=== PATIENT | male | born 2000 | race Caucasian/White ===

== ENCOUNTER 2025-03-26 05:48 | Day surgery (SDC) | payer BC, SELFPAY ==
[2025-03-26] VITALS (7 sets, daily range): BP systolic 20–126; BP diastolic 48–65; BMI 19.2
[2025-03-26] MEDS: TYLENOL 1000 MG PO (06:33)
[2025-03-26] MEDS: NORMOSOL-R/PLASMALYTE-A 1000 IV (06:34)
--- NOTE | 2025-03-26 08:23 | W.IMMPOSTOP ---
Surgical Immed Post Op Note
-
Primary Surgeon: Obie
Assisting: Khushi BURT
Pre-op Diagnosis: Lipoma of buttock, bilateral
Post-op Diagnosis: Same
Procedure Performed: Excision of lipoma of buttock, bilateral
Anesthesia Type: MAC local
Specimen / Cultures: Lipoma left buttock and lipoma right buttock
Estimated Blood Loss: 5cc
Complications: None immediate
Operative Findings: Fibrous lipomatous soft tissue masses with superficial cystic component, left buttock 7cm x 3cm x 2cm; right buttock 6cm x 3cm x 2cm
--- NOTE | 2025-03-26 11:20 | OR.RPT ---
Operative Report
Operative Report
Primary Surgeon: Obie
Assisting: Khushi BURT
Pre-op Diagnosis: Lipoma of buttock, bilateral
Post-op Diagnosis: Same
Procedure Performed: Excision of lipoma of buttock, bilateral
Anesthesia Type: MAC local
Specimen / Cultures: Lipoma left buttock and lipoma right buttock
Estimated Blood Loss: 5cc
Complications: None immediate
Operative Findings: Fibrous lipomatous soft tissue masses with superficial cystic component, left buttock 7cm x 3cm x 2cm; right buttock 6cm x 3cm x 2cm
Date of Surgery: 03/26/25
Indications: This 25M developed soft tissue masses on bilateral buttocks. Excision under MC local was planned.
PROCEDURE: After informed consent was obtained, the patient was marked and then brought to the operative suite and placed supine on the operating table. The patient was sedated, prepped and draped in the usual sterile manner and an adequate local
anesthetic was administered using lidocaine.
Attention was turned to the left buttock mass. An incision was made over the mass and carried down to the subcutaneous fat with a #10 blade. The mass was palpated and grasped with an allis clamp and elevated. Surrounding attachments were taken with
metzenbaum gunnar and cautery. The mass was excised in toto and passed off the table as specimen. It did not have a clear border. It had a fibrous texture. The wound was then packed with a raytec and attention was turned to the right buttock mass
and the above process was repeated with similar findings. Care was taken to protect the skin.
The wounds were then irrigated with copious sterile saline, and hemostasis was obtained using Bovie electrocautery. The skin was approximated with 3-0 Vicryl deep dermal interrupted sutures and 4-0 monocryl suture in a subcuticular fashion. Topical
skin glue was then applied. All surgical counts were reported as correct.
The patient tolerated the procedure well and was taken to the PACU in stable condition.
The assistance of Khushi BURT was required due to the complexity of the procedure. During the procedure she assisted with retraction, resection, and closure of the wound.
== END 2025-03-26 10:00 | disposition home or self-care (01) ==
LOC: SDS 05:48
PROVIDERS: ATTENDING PHYSICIAN Surgery
DX: D17.1 Benign lipomatous neoplasm of skin and subcutaneous tissue of trunk (principal)
CPT/HCPCS: 21931; 88304